=== PATIENT | female | born 1955 | race African-American/Black ===

== ENCOUNTER 2018-04-19 19:49 | Emergency (ER) | payer OTHER ==
[2018-04-19 19:55] VITALS: BP 140/78; PULSE 90; TEMP 98.4; BMI 24.6
--- NOTE | 2018-04-19 21:43 | PDOC ---
History of Present Illness - General Chief Complaint: Nausea/Vomiting Stated Complaint: VOMITING Time Seen by Provider: 04/19/18 21:43 History Source: Patient Exam Limitations: No Limitations - History of Present Illness Initial Comments: 63 y/o female presenting to [facility] complaining of nausea/vomiting with diarrhea starting today around 14:00. Estimates 5x vomiting; described as non-bloody and non-bilious mostly containing food particulates. Estimates 1x diarrhea; described as watery and non-bloody. Reports episodic non-localizing sharp/ crampy pain occuring just prior to vomiting; resolves post-emesis. Pain does not radiate to flanks or back. Denies urinary symptoms. 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 4 y/o grandson was vomiting on . Denies headache, change in vision, trouble swallowing, chest pain, shortness of breath , back pain, trouble walking, syncope, or rash. Discontinued tamoxifen therapy per physician orders last Saturday (14 April 2018). Past History - Travel Traveled outside of the country in the last 30 days: No Close contact w/someone who was outside of country & ill: No - Past Medical History Allergies/Adverse Reactions: Allergies Allergy/AdvReac Type Severity Reaction Status Date / Time No Known Drug Allergies Allergy Verified 04/19/18 19:55 Home Medications: Ambulatory Orders Ondansetron [Zofran -] 4 mg PO Q8H #10 tablet 04/19/18 Anemia: No Asthma: Yes (SEASONAL-INHALER USE 2 WEEKS AGO STABLE) Cancer: No Cardiac Disorders: No CVA: No COPD: No CHF: No Dementia: No Diabetes: No GI Disorders: Yes (GERD,TAKES OTC MEDS SOMETIMES) Disorders: No HTN: No Hypercholesterolemia: No Liver Disease: No Seizures: No Thyroid Disease: No - Surgical History Abdominal Surgery: No Appendectomy: No Cardiac Surgery: No Cholecystectomy: No Lung Surgery: No Neurologic Surgery: No Orthopedic Surgery: No Comments:: S/p lumpectomy from L breast, 5 years prior. - Suicide/Smoking/Psychosocial Hx Smoking History: Never smoked Have you smoked in the past 12 months: No Information on smoking cessation initiated: No Hx Alcohol Use: No Drug/Substance Use Hx: No Substance Use Type: None Hx Substance Use Treatment: No Review of Systems - Review of Systems Able to Perform ROS?: Yes Is the patient limited [place] proficient: No Constitutional: No: Chills, Diaphoresis, Fever HEENTM: No: Recent change in vision, Difficulty Swallowing Respiratory: No: Shortness of Breath Cardiac (ROS): No: Chest Pain, Edema, Irregular Heart Rate, Lightheadedness, Palpitations, Syncope ABD/GI: Yes: Diarrhea, Nausea, Poor Fluid Intake, Vomiting, Abdominal cramping. No: Blood Streaked Bowels, Difficulty Swallowing, Rectal Bleeding, Indigestion , Tarry Stools : No: Burning, Dysuria, Discharge, Frequency, Flank Pain, Hematuria Musculoskeletal: No: Back Pain Integumentary: No: Rash Neurological: No: Headache, Unsteady Gait, Dizziness Hematologic/Lymphatic: No: Easy Bleeding, Easy Bruising *Physical Exam - Vital Signs Last Vital Signs Temp Pulse Resp BP Pulse Ox 98.4 F 90 18 140/78 100 04/19/18 19:52 04/19/18 19:52 04/19/18 19:52 04/19/18 19:52 04/19/18 19:52 - Physical Exam Comments: Constitutional: Well-developed, well-nourished female in no acute distress. Found sitting upright on edge of hospital bed. Alert and oriented x4. Answered all questions appropriately and completely. Speech was non-labored, non- pressured. Head: normocephalic. Eyes: Sclerae white. Conjunctiva moist and not injected. NOSE: No nasal discharge. THROAT: Oral cavity and pharynx (poorly visualized secondary to anatomy) normal. No inflammation, swelling, exudate, or lesions. Mucosa moist. Neck: Supple, trachea is midline. No JVD.. Cardiovascular: Regular rate and regular rhythm. No murmur, rubs, clicks, or gallops. Peripheral pulses: Radial pulses full Respiratory: Clear to auscultation bilaterally. No stridor, no wheezing, no rhonchi. Gastrointestinal: abdomen is soft, non-tender, non-distended. No hepatosplenemegaly. No pulsatile masses. No overlying skin lesions or obvious signs of trauma. Neuro: Alert and oriented. Moving all four extremities spontaneously. Psych: Affect: appropriate. Mood: normal. ED Treatment Course - LABORATORY CBC & Chemistry Diagram: 04/19/18 22:15 04/19/18 22:49 Medical Decision Making - Medical Decision Making 63 y/o female with N/V/D with episodic abd pain pre-emesis since 14:00 today. Non-bloody. [place] abdomen. No history of prior abdominal problems. No cardiac or urinary symptoms. Recent contact with sick 4 y/o. Afebrile. Vitals unremarkable for hypotension or tachycardia. Physical exam revealed soft, non- tender, and non-distended. Signs/symptoms suggestive of gastroenteritis. Low suspicion for obstruction given lack of prior abdominal history and diarrhea. Low suspicion for pancreatitis or biliary pathology as pain generalized and felt just prior to vomiting; no [place] sign. Will obtain CBC, CMP, and Lipase. Ordered Zofran and Pepcid for symptom relief. 22:51 CMP and Lipase hemolyzed. Reordered and redrawn. Pt reports feeling much better; no nausea or pain. 23:48 CBC unremarkable for luekocytosis or leukopenia. CMP unremarkable for metabolic derangement. LFTs not elevated. Lipase not elevated. Passed PO challenge. No vomiting or diarrhea while in department. Discussed results, plan to discharge home, and return precautions with patient. Will prescribe PO Zofran PRN for nausea/vomiting. [facility]. She expressed verbal understanding and agreement with plan. Pt safe to discharge home. *DC/Admit/Observation/Transfer Diagnosis at time of Disposition: Nausea & vomiting Qualifiers: Vomiting type: unspecified Vomiting Intractability: non-intractable Qualified Code(s): R11.2 - Nausea with vomiting, unspecified Diarrhea Qualifiers: Diarrhea type: unspecified type Qualified Code(s): R19.7 - Diarrhea, unspecified - Discharge Dispostion Disposition: HOME Decision to Admit order: No - Prescriptions Prescriptions: Ondansetron [Zofran -] 4 mg PO Q8H #10 tablet - Referrals - Patient Instructions Printed Discharge Instructions: DI for Vomiting -- Adult Additional Instructions: I have sent a prescription for Zofran to the [facility] at [address] [place] [id number]. Their phone number is . Please continue to drink fluids (water, Gatorade, etc) to stay hydrated. You can try and eat a small bland meal (crackers, etc) after you have stopped vomiting for 12 hours. Return to the emergency room if your vomiting becomes much worse and you are no longer able to keep fluids down, if you begin to feel dehydrated, if you develop a fever, pass out, become disoriented, begin vomiting blood, have bloody diarrhea, or you feel like you need additional emergency care. You can also see your primary care doctor if your symptoms do not improve. Print Language: GREENLANDIC - Post Discharge Activity
[2018-04-19] MEDS ORDERED: ONDANSETRON 4 MG/2 ML VIAL IVPUSH ONE (21:46)
[2018-04-19] MEDS ORDERED: SODIUM CHLORIDE 1,000 ML IV STA (21:46)
[2018-04-19] MEDS ORDERED: FAMOTIDINE 20 MG/50 ML IVPB 20 MG/50 ML MG IVPB ONE ×2 (22:03→22:22)
[2018-04-19] MEDS ORDERED: ONDANSETRON 4 MG/2 ML VIAL ONE (22:20)
[2018-04-19 22:24] LABS: BASO % 0.5 % (0-2.0); EOS % 0.2 % (0-4.5); HEMATOCRIT 43.8 % (32.4-45.2); HEMOGLOBIN 14.6 GM/dL (10.7-15.3); LYMPH % 5.2 % (8-40); MCH 28.7 pg (25.7-33.7); MCHC 33.3 g/dl (32.0-36.0); MEAN PLT VOLUME 8.8 fl (7.5-11.1); MONO % 2.5 % (3.8-10.2); NEUT % 91.6 % (42.8-82.8); PLATELET COUNT 220 K/MM3 (134-434); RBC 5.09 M/mm3 (3.60-5.2); RDW 14.2 % (11.6-15.6); WHITE BLOOD COUNT 8.3 K/mm3 (4.0-10.0)
--- NOTE | 2018-04-19 22:53 | PDOC ---
Attending Attestation - HPI HPI: 04/19/18 23:03 Vinh 63 YOF Presenting with nausea and vomiting and diarrhea since 4pm today. X5-6 episodes of NBNB emesis, x1 watery brown diarrhea. + lightheadedness. +sick contacts including grandchild with similar symptoms. Patient reports experiencing nausea with associated vomiting, subjective chills , and diarrhea that began this evening at 4pm. Patient reports experiencing x1 episode of diarrhea and x6 episodes of vomiting, stating after the final episode she experienced slight lightheadedness, prompting her to come into the ED for further evaluation. She reports being in contact with her grandson last with similar symptoms but states his did not appear as intense as hers. Patient reports eating old food from a past libertarian but states she is the only one that has eaten the food who has experienced these symptoms. She reports experiencing slight cough with associated nausea this morning but states it subsided shortly after. Allergies: None Social history: No smoking. No alcohol. No illicit drugs. Surgical history: C- section PMD: None - Physicial Exam PE: 04/19/18 23:03 General: Well appearing, awake and alert, NAD. HEENT: NCAT, PERRL, EOMI, clear conjunctiva, anicteric, moist mucous membranes , clear oropharynx, no oral lesions.. Airway patent, normal phonation Neck: neck supple, FROM Lungs: CTAB, normal and even respirations, no respiratory distress Heart: RRR, 2+ peripheral pulses throughout, no peripheral edema Abdomen: soft, NTND, no peritoneal signs. C section scar, normal inspection. No tympany. No CVAT Back: nontender, normal inspection and ROM MSK: no edema, HA x4, ROM intact. No clubbing or cyanosis. normal bulk and tone. Neuro: alert, oriented appropriately Skin: warm and well perfused, cap refill <2 sec, normal color for ethnicity <Abel Watts - Last Filed: 04/19/18 23:03> - Resident Resident Name: Luis A Kruger - ED Attending Attestation I have performed the following: I have examined & evaluated the patient, The case was reviewed & discussed with the resident, I agree w/resident's findings & plan - Medical Decision Making 04/19/18 22:52 MDM: Vinh Calixto YOF Presenting with nausea and vomiting and diarrhea since 4pm today. X5-6 episodes of NBNB emesis, x1 watery brown diarrhea. + lightheadedness. +sick contacts including grandchild with similar symptoms. + also ate some old food including fabi gren DDx abdominal pain: GERD, PUD, esophageal spasm, pancreatitis, hepatitis,, viral syndrome, colitis, gastroenteritis, cholecystitis, appendicitis, hernia, appendicitis, diverticulitis Considered but clinically doubt and low suspicion based on HPI and PE: ileus, SBO given +BM and flatus. Abdomen non-peritoneal. Also less likely AAA or vascular pathology or mesenteric ischemia. No lower quad pain to indicate appy or diverticulitis. Vital signs wnl, afebrile. Basic labs, LFTs and lipase wnl, less likely intra abdominal pathology or pancreatitis.. Intervention include IVF and zofran, pepcid, with improvement. Remains well appearing, abdomen soft NTND, VS wnl. Tolerating PO intake. Pt to be discharged in stable condition. Patient made aware of impression and plan, return precautions discussed (including but not limited to worsening pain or symptoms), fevers, or signs of infection, chest pain, respiratory distress, inability to tolerate oral intake, dehydration, syncope, or neurologic changes) . Follow up with PMD as recommended, follow up information provided, take medications as instructed for duration of time, rx zofran PRN for nausea.. continue with supportive care, avoid triggers and precipitants, rest and hydration, expectant management and course discussed. 04/19/18 23:31 04/19/18 23:32 <Hiwot Brooks - Last Filed: 04/19/18 23:32> Heart Score/ECG Review - ECG Impressions Comment:: 04/19/18 23:30 EKG sinus rhythm 75 bpm with nonspecific TWI in anterior leads, no elevations or depressions. normal intervals and QRS/axis. <Hiwot Brooks - Last Filed: 04/19/18 23:32>
[2018-04-19 23:02] LABS: PLATELET ESTIMATE ADEQUATE
[2018-04-19 23:18] LABS: ALBUMIN 3.4 g/dl (3.4-5.0); ALK PHOS 46 U/L (45-117); ANION GAP 7 (8-16); BILIRUBIN,TOTAL 0.5 mg/dL (0.2-1.0); BLOOD UREA NITROGEN 14 mg/dL (7-18); CALCIUM 8.6 mg/dL (8.5-10.1); CHLORIDE 107 mmol/L (98-107); CO2 25 mmol/L (21-32); CREATININE 0.8 mg/dL (0.55-1.02); GLUCOSE,RANDOM 98 mg/dL (74-106); LIPASE 97 U/L (73-393); POTASSIUM 3.8 mmol/L (3.5-5.1); SGOT/AST 20 U/L (15-37); SGPT/ALT 23 U/L (12-78); SODIUM 139 mmol/L (136-145)
--- NOTE | 2018-04-20 08:35 | EKG ---
Test Reason : Blood Pressure : / mmHG Vent. Rate : 075 BPM Atrial Rate : 075 BPM P-R Int : 170 ms QRS Dur : 074 ms QT Int : 406 ms P-R-T Axes : 045 010 048 degrees QTc Int : 453 ms NORMAL SINUS RHYTHM T WAVE ABNORMALITY, CONSIDER ANTERIOR ISCHEMIA ABNORMAL ECG WHEN COMPARED WITH ECG OF 12-NOV-2015 19:22, NO SIGNIFICANT CHANGE WAS FOUND Confirmed by SUE FOLEY MD ([id number]) on 04/20/2018 8:34:34 AM Referred By: Confirmed By:SUE FOLEY MD
== END 2018-04-20 01:16 | disposition home or self-care (01) ==
LOC: JER 19:49
PROC: 3E033GC Introduction of Other Therapeutic Substance into Peripheral Vein, Percutaneous Approach (ICD-10-PCS; principal; 2018-04-19)
PROC: 3E033GC Introduction of Other Therapeutic Substance into Peripheral Vein, Percutaneous Approach (ICD-10-PCS; 2018-04-19)
DX: K52.9 Noninfective gastroenteritis and colitis, unspecified (principal)
CPT/HCPCS: 36415; 80053; 83690; 85025; 93005; 93010; 96365; 96375; 99282-25; J7030

== ENCOUNTER 2022-01-20 11:38 | Emergency (ER) | payer OTHER ==
[2022-01-20 12:00] VITALS: BP 145/92; PULSE 92; TEMP 98.2; BMI 26.0
== END 2022-01-20 12:27 | disposition home or self-care (01) ==
LOC: JER 11:38 → JERFT 11:38
DX: L03.211 Cellulitis of face (principal)
CPT/HCPCS: 99281-25

== ENCOUNTER 2023-12-03 12:28 | Emergency (ER) | payer OTHER ==
[2023-12-03 12:43] VITALS: BP 158/82; PULSE 98; RESP 18; TEMP 98.7; BMI 26.6
[2023-12-03 16:23] LABS: BASO % 1.5 % (0-2.0); EOS % 1.2 % (0-4.5); HEMATOCRIT 41.7 % (32.4-45.2); HEMOGLOBIN 14.1 GM/dL (10.7-15.3); LYMPH % 29.8 % (8-40); MCH 28.9 pg (25.7-33.7); MCHC 33.9 g/dl (32.0-36.0); MEAN CELL VOLUME 85.4 fl (80-96); MEAN PLT VOLUME 8.6 fl (7.5-11.1); MONO % 6.7 % (3.8-10.2); NEUT % 60.8 % (42.8-82.8); PLATELET COUNT 253 10^3/uL (134-434); RBC 4.89 M/mm3 (3.60-5.2); RDW 14.6 % (11.6-15.6); WHITE BLOOD COUNT 6.1 K/mm3 (4.0-10.0)
[2023-12-03 16:35] LABS: POTASSIUM 4.4 mmol/L (3.5-5.1)
[2023-12-03 16:38] LABS: CALCIUM 9.9 mg/dL (8.5-10.1)
[2023-12-03 16:39] LABS: ALBUMIN 3.7 g/dl (3.4-5.0); BLOOD UREA NITROGEN 11.1 mg/dL (7-18)
[2023-12-03 16:42] LABS: CREATININE 0.8 mg/dL (0.55-1.3)
[2023-12-03 16:43] LABS: BILIRUBIN,TOTAL 0.3 mg/dL (0.2-1)
[2023-12-03 16:44] LABS: TOT PROT 7.8 g/dl (6.4-8.2)
== END 2023-12-03 18:32 | disposition home or self-care (01) ==
LOC: JER 12:28 → JERFT 12:28 → JER 18:32
DX: R07.9 Chest pain, unspecified (principal); R05.9 Cough, unspecified; R09.81 Nasal congestion; R00.2 Palpitations; Z20.822 Contact with and (suspected) exposure to COVID-19
CPT/HCPCS: 0241U-QW; 36415; 71046-TC-FY; 80053; 84484; 85025; 93005; 93010; 99285-25

== ENCOUNTER 2025-02-22 00:38 | Emergency (ER) | payer OTHER ==
[2025-02-22 00:48] VITALS: TEMP 98.6; BMI 27.4
[2025-02-22] MEDS ORDERED: ALBUTEROL SO4 HFA INHALER IH ONE (01:19)
[2025-02-22] MEDS: ALBUTEROL SO4 HFA INHALER IH ONE (01:39)
[2025-02-22 01:44] LABS: ABSOLUTE IMMATURE GRANULOCYTES 0.02 x10^3/uL (0.0-0.031); BASOPHILS # 0.03 x10^3/uL (0.01-0.08); EOSINOPHIL % 2.5 % (0.7-5.8); EOSINOPHILS # 0.17 x10^3/uL (0.04-0.36); HEMATOCRIT 41.2 % (34.1-44.9); HEMOGLOBIN 13.3 g/dL (11.2-15.7); MCHC 32.3 g/dl (32.2-35.5); MEAN CELL VOLUME 87.3 fl (79.4-94.8); MEAN PLT VOLUME 10.3 fl (9.4-12.3); MONOCYTE # 0.66 x10^3/uL (0.24-0.86); MONOCYTE % 9.5 % (4.7-12.5); PLATELET COUNT 251 x10^3/uL (182-369)
[2025-02-22 01:56] LABS: ACTIVATED PTT 31.8 SECONDS (25.2-36.5); INR 0.91 (0.83-1.09); PROTHROMBIN TIME (PATIENT) 9.9 SEC (9.7-13.0)
[2025-02-22 02:04] LABS: POTASSIUM 4.7 mmol/L (3.5-5.1)
[2025-02-22 02:06] LABS: CALCIUM 9.8 mg/dL (8.5-10.1)
[2025-02-22 02:07] LABS: ALBUMIN 3.3 g/dl (3.4-5.0); MAGNESIUM 2.2 mg/dL (1.8-2.4)
[2025-02-22 02:10] LABS: CREATININE 0.8 mg/dL (0.55-1.3)
[2025-02-22 02:11] LABS: BILIRUBIN,TOTAL 0.3 mg/dL (0.2-1); TOT PROT 7.1 g/dl (6.4-8.2)
[2025-02-22 04:18] VITALS: BP 145/67; PULSE 67; RESP 14
== END 2025-02-22 04:37 | disposition home or self-care (01) ==
LOC: JER 00:38
DX: R42 Dizziness and giddiness (principal); R06.02 Shortness of breath; R07.89 Other chest pain
CPT/HCPCS: 36415; 71046-TC-FY; 80053; 83735; 84439; 84443; 84484; 85025; 85610; 85730; 93005; 93010; 99285-25